=== PATIENT | female | born 1975 | race African-American/Black ===

== ENCOUNTER 2019-03-09 12:33 | Emergency (ER) | payer SELFPAY ==
[~2019-03-09] VITALS: Ht 167.6 cm; Wt 88.0 kg
[2019-03-09] MEDS ORDERED: ASPIRIN 81MG TABLET PO ONE (13:45)
[2019-03-09] MEDS ORDERED: NITROGLYCERIN 0.4MG TABLET SL SL PRN (13:45)
[2019-03-09 13:58] LABS: BASOPHILS % 0.5 % (0.0-2.0); EOSINOPHILS % 4.5 % (0.0-5.0); HEMATOCRIT. 33.7 % (36.0-48.0); HEMOGLOBIN. 10.8 g/dL (12.0-16.0); LYMPHOCYTES % 33.5 % (20.0-50.0); MEAN CORPUSCULAR VOLUME 83.8 fL (81.0-99.0); MEAN PLATELET VOLUME 7.2 fl (7.4-10.4); MONOCYTES % 9.5 % (2.0-8.0); PLATELET 363 x1000/uL (130-400); RED BLOOD CELL COUNT 4.02 mill/uL (4.2-5.4); RED CELL DISTRIBUTION WIDTH 18.2 % (11.6-14.6)
[2019-03-09 14:03] LABS: CHLORIDE 106 mEq/L (98-107)
[2019-03-09 14:07] LABS: D-DIMER 0.31 mg/L FEU (<0.50); PARTIAL THROMBOPLASTIN TIME 28.3 sec (23.4-31.0); PROTHROMBIN TIME 10.4 sec (9.6-11.0)
[2019-03-09 14:10] LABS: HCG SCREEN NEGATIVE
[2019-03-09] MEDS ORDERED: ACETAMINOPHEN 325MG TABLET PO ONE (17:45)
[2019-03-09 18:31] VITALS: BP 128/69
== END 2019-03-09 18:35 | disposition home or self-care (01) ==
LOC: ER 12:33
DX: R07.89 Other chest pain (principal)
CPT/HCPCS: 36415; 71045; 80053; 83880; 84484; 84703; 85025; 85379; 85610; 85730; 93005; 99284; Z7610